=== PATIENT | female | born 1990 | race Caucasian/White ===

== ENCOUNTER 2016-06-13 10:21 | Inpatient (IN) | payer OTHER ==
[2016-06-13 10:36] VITALS: BMI 31.8
[2016-06-13] MEDS ORDERED: KETOROLAC TROMETHAMINE 30 MG/1 ML VIAL IVPUSH ONE (10:45)
[2016-06-13] MEDS ORDERED: KETOROLAC TROMETHAMINE 30 MG/1 ML VIAL ONE (10:53)
[2016-06-13] MEDS ORDERED: ONDANSETRON 4 MG/2 ML VIAL IVPB ONE (10:54)
[2016-06-13] MEDS ORDERED: SODIUM CHLORIDE 1,000 ML IV ONE (10:54)
--- NOTE | 2016-06-13 10:54 | PDOC ---
History of Present Illness - General History Source: Patient Exam Limitations: No Limitations - History of Present Illness Initial Comments: 06/13/16 10:57 The patient is a 26-year-old woman, accompanied by significant other, with a significant past medical history of cholelithiasis who presents to the emergency department via walk-in for further evaluation of abdominal pain since last night. Patient admits she was diagnosed with cholelithiasis back in 2012, but had put off the surgery until now. Patient states that her pain has been intermittent since April 2016 (reported approximately 2-3 flares/week), however, her pain had worsened last night at approximately 20:30 pm. Her pain is located over the right upper quadrant, piercing in nature with an 8/10 in severity that initially was non-radiating and intermittent, but is now constant and has radiated to her mid back. She reports associated symptoms of nausea, acid reflux and urinary frequency. No vomiting. Patient reports eating rich and chicken for dinner last night. Her last menstrual period was on 05/18/2016. Patient admits she had a brief consultation with General Surgeon, Dr. Jc Buckley, approximately 3 days ago. Was told to go to the ED if she had any recurrence of pain. She denies fever, chills, diaphoresis, generalized weakness. She denies chest pain, shortness of breath, cough She denies diarrhea, dysuria, hematuria, urinary urgency, flank pain, vaginal discharge/vaginal bleeding Allergies: None Known Drug Allergies Past Surgical History: None reported. Social History: She denied tobacco, ETOH and recreational drug use. <Martha Butler - Last Filed: 06/13/16 14:18> <Luan Wilson - Last Filed: 06/14/16 09:29> - General Chief Complaint: Pain Stated Complaint: GALLBLADDER PAIN Time Seen by Provider: 06/13/16 10:26 Past History <Martha Butler - Last Filed: 06/13/16 14:18> - Past Medical History GI Disorders: Yes (cholilethisis) - Psycho/Social/Smoking Cessation Hx Anxiety: No Suicidal Ideation: No Smoking History: Never smoked Have you smoked in the past 12 months: No Information on smoking cessation initiated: No Hx Alcohol Use: No Drug/Substance Use Hx: No Substance Use Type: None <Luan Wilson - Last Filed: 06/14/16 09:29> - Past Medical History Allergies/Adverse Reactions: Allergies Allergy/AdvReac Type Severity Reaction Status Date / Time No Known Allergies Allergy Verified 06/13/16 10:32 Home Medications: Ambulatory Orders NK [No Known Home Medication] 06/13/16 Review of Systems - Review of Systems Able to Perform ROS?: Yes Comments:: 06/13/16 10:57 CONSTITUTIONAL: No reported: Fever, Chills, Diaphoresis, Generalized Weakness, Malaise, Loss of Appetite HEENT: No reported: Rhinorrhea, Nasal Congestion, Throat Pain, Throat Swelling, Difficulty Swallowing, Mouth Swelling, Ear Pain, Eye Pain, Visual Changes CARDIOVASCULAR: No reported: Chest Pain, Syncope, Palpitations, Irregular Heart Rate, Lightheadedness, Peripheral Edema RESPIRATORY: No reported: Cough, Shortness of Breath, SOB with Exertion, Orthopnea, Wheezing , Stridor, Hemoptysis GASTROINTESTINAL: Reported: +Abdominal Pain. +Nausea. +Acid Reflux. No reported: Abdominal Distension, Vomiting, Diarrhea, Constipation, Melena, Hematochezia GENITOURINARY: Reported: +Urinary Frequency. No reported: Dysuria, Urgency, Hesitancy, Flank Pain, Genital Pain MUSCULOSKELETAL: Reported: +Mid Back Pain. No reported: Joint Swelling, Neck Pain SKIN: No reported: Rash, Itching, Pallor HEMEATOLOGIC/IMMUNOLOGIC: No reported: Easy Bleeding, Easy Bruising, Lymphadenopathy, Frequent infections ENDOCRINE: No reported: Unexplained Weight Gain, Unexplained Weight Loss, Heat Intolerance , Cold Intolerance NEUROLOGIC: No reported: Headache, Focal Weakness, Paresthesias, Vertigo, Lightheadedness, Unsteady Gait, Seizure, Mental Status Changes, Incontinence PSYCHIATRIC: No reported: Anxiety, Depression <Martha Butler - Last Filed: 06/13/16 14:18> *Physical Exam - Vital Signs Last Vital Signs Temp Pulse Resp BP Pulse Ox 97.6 F 89 18 124/69 100 06/13/16 10:24 06/13/16 10:24 06/13/16 10:24 06/13/16 10:24 06/13/16 10:24 - Physical Exam Comments: 06/13/16 10:57 GENERAL: The patient is awake, alert, and fully oriented, Nontoxic - in no acute distress. HEAD: Normocephalic, atraumatic. EYES: extraocular movements intact, sclera anicteric, conjunctiva clear. ENT: Normal voice, Moist mucous membranes. NECK: Normal range of motion, supple LUNGS: Breath sounds equal, clear to auscultation bilaterally. No wheezes, no rhonchi, no rales. HEART: Regular rate and rhythm, without murmur, rub or gallop. ABDOMEN: Soft, there is mild right upper quadrant tenderness to palpation, normoactive bowel sounds. No guarding, no rebound. No CVA tenderness EXTREMITIES: Normal range of motion, no edema. No clubbing or cyanosis. No cords , erythema, or tenderness. NEUROLOGICAL: No facial assymetry, Normal speech, PSYCH: Normal mood, normal affect. SKIN: Warm, Dry, normal turgor, <Martha Butler - Last Filed: 06/13/16 14:18> - Vital Signs Last Vital Signs Temp Pulse Resp BP Pulse Ox 97.6 F 89 18 124/69 100 06/13/16 10:24 06/13/16 10:24 06/13/16 10:24 06/13/16 10:24 06/13/16 10:24 <Luan Wilson - Last Filed: 06/14/16 09:29> ED Treatment Course - LABORATORY CBC & Chemistry Diagram: 06/13/16 10:47 06/13/16 10:47 - RADIOLOGY Radiograph Interpretation: 06/13/16 13:39 EXAM: US/ABDOMEN US -LIMITED IMPRESSION: Normal liver volume 15.1 cm with findings consistent with hepatic steatosis Normal visualization of the pancreas with no dilation pancreatic duct and no signs of pancreatitis No ascites or pleural effusions Normal visualization abdominal aorta and inferior vena cava with abdominal aorta 1.8 cm. Right kidney 11 x 4 x 6 cm with no hydronephrosis or stones Upper normal gallbladder wall thickness 0.3 cm. Dilation of the common bile duct measuring 1.4 cm with evidence of intrahepatic and extrahepatic biliary duct dilation. No dilation of the pancreatic duct is seen. Proximal abdominal aorta 1.8 cm. Shadowing gallstones noted in the lumen of the gallbladder. Dilation of the common bile duct at the level of the kristal hepatis up to 1.4 cm. Liver volume appears normal. No pericholecystic fluid identified. Recommend consideration to nuclear medicine DISIDA scan to evaluate for cystic duct patency and to evaluate flow in the common bile duct. No thrombus in the portal vein with normal direction of flow in the portal vein identified. Prominent appearance of the intrahepatic bile ducts suspicious for intrahepatic bile duct distention. The possibility of choledocholithiasis is not excluded, consideration to MRCP examination for further evaluation. <Martha Butler - Last Filed: 06/13/16 14:18> - LABORATORY CBC & Chemistry Diagram: 06/14/16 06:00 06/14/16 06:00 - RADIOLOGY Radiology Studies Ordered: Category Date Time Status GALLBLADDER US [US] Stat Ultrasound 06/13/16 10:51 Ordered <Luan Wilson - Last Filed: 06/14/16 09:29> Medical Decision Making - Medical Decision Making 06/13/16 13:40 A call was placed to General Surgeon, Dr. Jc Buckley. Immediate response. Case was discussed. 06/13/16 13:43 Case was discussed with [employer], Dr. Subhash Lee. Case was discussed. Accepts case. 06/13/16 13:45 Case discussed with Finance Teacher, Dr. Remy Marcus. Accepts case. Patient will undergo MRCP. <Martha Butler - Last Filed: 06/13/16 14:18> - Medical Decision Making 06/13/16 13:41 26y F no pmhx presents wiht RUQ pain for several days no fevers, +vomiting, mild RUQ tenderness labs reviewed, noted for elvated LFTs no leukocytosis/fevers or other signs of cholangitis US c/w choledocholithirais - will need to admit pt for MRCP will consult dr. Sanchez. pt given mckeon meds, fluids, zofran case d/w dr. buckley (surgery), dr. lee - agreed with admission for further mangaement awaiting call back from dr. sanchez Case discussed in detail with admitting physician including history, physical exam and ancillary studies. Admitting physician has assumed care for the patient, will follow all pending diagnostics and will complete the evaluation and treatment. 06/13/16 14:[address] sanchez requests mri/mrcp pt notes pain returned - will give morphine for pain control A portion of this note was documented by scribe services under my direction. I have reviewed the details of the note, within reason, and agree with the documentation with the following case summary and management plan written by me <Luan Wilson - Last Filed: 06/14/16 09:29> *DC/Admit/Observation/Transfer - Attestations Scribe Attestion: 06/13/16 10:57 Documentation prepared by Martha Butler, acting as front office medical assistant for Luan Wilson MD. <Martha Butler - Last Filed: 06/13/16 14:18> - Discharge Dispostion Admit: Yes <Luan Wilson - Last Filed: 06/14/16 09:29> Diagnosis at time of Disposition: Choledocholithiasis with obstruction Qualifiers: Cholecystitis presence: without cholecystitis Qualified Code(s): K80.51 - Calculus of bile duct without cholangitis or cholecystitis with obstruction - Referrals
[2016-06-13 11:00] LABS: BASOPHIL 0.8 % (0-2.0); EOSINOPHIL 1.4 % (0-4.5); MCH 30.2 pg (25.7-33.7); MCHC 33.4 g/dl (32.0-36.0); MEAN CELL VOLUME 90.6 fl (80-96); MEAN PLT VOLUME 8.2 fl (7.5-11.1); NEUTROPHILS 73.5 % (42.8-82.8); PLATELET COUNT 315 K/MM3 (134-434); RDW 13.2 % (11.6-15.6); WHITE BLOOD COUNT 6.1 K/mm3 (4.0-10.0)
[2016-06-13 11:14] LABS: URINE APPEARANCE SLCLOUDY; URINE BILIRUBIN NEGATIVE (NEGATIVE); URINE BLOOD NEGATIVE (NEGATIVE); URINE COLOR YELLOW; URINE GLUCOSE (UA) NEGATIVE (NEGATIVE); URINE KETONE NEGATIVE (NEGATIVE); URINE LEUK ESTERASE NEGATIVE (NEGATIVE); URINE NITRITE NEGATIVE (NEGATIVE); URINE PROTEIN NEGATIVE (NEGATIVE); URINE UROBILINOGEN NEGATIVE E.U./dl (0.2-1.0)
[2016-06-13 11:33] LABS: ALBUMIN 3.9 g/dl (3.4-5.0); ALK PHOS 203 U/L (45-117); ANION GAP 7 (8-16); BILIRUBIN,DIRECT 0.6 mg/dL (0.0-0.2); BILIRUBIN,TOTAL 0.9 mg/dL (0.2-1.0); CALCIUM 8.9 mg/dL (8.5-10.1); CO2 26 mmol/L (21-32); CREATININE 0.6 mg/dL (0.55-1.02); GLUCOSE,RANDOM 86 mg/dL (74-106); TOT PROT 8.4 g/dl (6.4-8.2)
[2016-06-13 11:36] LABS: SGPT/ALT 567 U/L (12-78)
[2016-06-13 11:37] LABS: SGOT/AST 708 U/L (15-37)
[2016-06-13] MEDS ORDERED: ONDANSETRON 4 MG/2 ML VIAL ONE (11:59)
[2016-06-13] MEDS ORDERED: morphine CARPU-JECT 4 MG/1 ML DISP.SYRIN IVPUSH ONE (13:45)
[2016-06-13] MEDS ORDERED: morphine CARPU-JECT 4 MG/1 ML DISP.SYRIN ONE (14:09)
[2016-06-13] MEDS ORDERED: DEXTROSE 5%-0.45% SALINE 1,000 ML IV SCH (17:45)
[2016-06-13] MEDS ORDERED: INFLUENZA VACCINE 45 MCG/0.5 ML (MDV 16-17) IM ONE (19:00)
--- NOTE | 2016-06-13 20:29 | HP ---
Admitting History and Physical - Primary Care Physician PCP: Juan Troncoso - Admission Chief Complaint: abdominal pain History of Present Illness: 26-year-old woman,with a significant past medical history of cholelithiasis who presents to the emergency department for abdominal pain since last night. Patient admits she was diagnosed with cholelithiasis back in 2012, but had put off the surgery until now. Patient states that her pain has been intermittent since April 2016 (reported approximately 2-3 flares/week), however, her pain had worsened last night afte dinner. Her pain is located over the right upper quadrant, has radiated to her mid back 8/10 in severity. She reports associated symptoms of nausea, acid reflux and urinary frequency. No vomiting. Patient reports eating rich and chicken for dinner last night. Her last menstrual period was on 05/18/2016. - Past Medical History Hepatobiliary: Yes: Cholelithiasis ...LMP: 05/18/16 ...: No - Smoking History Smoking history: Never smoked Have you smoked in the past 12 months: No - Alcohol/Substance Use Hx Alcohol Use: No Home Medications - Allergies Allergies/Adverse Reactions: Allergies Allergy/AdvReac Type Severity Reaction Status Date / Time No Known Allergies Allergy Verified 06/13/16 10:32 - Home Medications Home Medications: Ambulatory Orders NK [No Known Home Medication] 06/13/16 Review of Systems - Review of Systems Gastrointestinal: reports: Abdominal Pain Physical Examination Vital Signs: Vital Signs Temperature 98.3 F 06/13/16 17:44 Pulse Rate 70 06/13/16 17:44 Respiratory Rate 18 06/13/16 17:44 Blood Pressure 104/68 06/13/16 17:44 O2 Sat by Pulse Oximetry (%) 100 06/13/16 15:54 Constitutional: Yes: Anxious HENT: Yes: Atraumatic Neck: Yes: Supple Cardiovascular: Yes: Regular Rate and Rhythm Respiratory: Yes: CTA Bilaterally Gastrointestinal: Yes: Normal Bowel Sounds, Tenderness (mild ruq/epigastric) Extremities: Yes: WNL Neurological: Yes: Alert, Oriented Imaging - Results MRI: Report Reviewed Problem List - Problems (1) Choledocholithiasis with obstruction Assessment/Plan: npo, ivf, iv prn pain meds gi and surgery consult Code(s): K80.51 - CALCULUS OF BILE DUCT W/O CHOLANGITIS OR CHOLECYST W OBST Qualifiers: Cholecystitis presence: without cholecystitis Qualified Code(s): K80.51 - Calculus of bile duct without cholangitis or cholecystitis with obstruction Assessment/Plan Laboratory Tests 06/13/16 06/13/16 06/13/16 10:47 10:47 10:47 WBC 6.1 RBC 4.70 Hgb 14.2 Hct 42.5 MCV 90.6 MCHC 33.4 RDW 13.2 Plt Count 315 MPV 8.2 Neutrophils % 73.5 Lymphocytes % 17.4 Monocytes % 6.9 Eosinophils % 1.4 Basophils % 0.8 Sodium 138 Potassium 4.3 Chloride 105 Carbon Dioxide 26 Anion Gap 7 L BUN 6 L Creatinine 0.6 Creat Clearance w eGFR > 60 Random Glucose 86 Calcium 8.9 Total Bilirubin 0.9 Direct Bilirubin 0.6 H AST 708 H ALT 567 H Alkaline Phosphatase 203 H Total Protein 8.4 H Albumin 3.9 Lipase 170 Urine Color Yellow Urine Appearance Slcloudy Urine pH 8.0 Ur Specific Macy 1.012 Urine Protein Negative Urine Glucose (UA) Negative Urine Ketones Negative Urine Blood Negative Urine Nitrite Negative Urine Bilirubin Negative Urine Urobilinogen Negative Ur Leukocyte Esterase Negative Urine HCG, Qual Negative 1.choledocholithis/cholelithiasis npo, ivf, iv abx prn painmeds gi and surgery consult
[2016-06-13] MEDS: HYDROmorphone HCL CARPU-JECT 1 MG/1 ML DISP.SYRIN IVPB PRN (21:05)
[2016-06-13] MEDS: SODIUM CHLORIDE 1,000 ML IV SCH (21:09)
[2016-06-13] MEDS: ONDANSETRON 4 MG/2 ML VIAL IVPB PRN (22:44)
[2016-06-13] MEDS: AMPICILLIN NA/SULBACTAM NA 1.5 GM/100 ML PRE-DOCKED IVPB SCH (22:45)
[2016-06-14] MEDS: AMPICILLIN NA/SULBACTAM NA 1.5 GM/100 ML PRE-DOCKED IVPB SCH (06:31)
[2016-06-14] MEDS: SODIUM CHLORIDE 1,000 ML IV SCH ×2 (06:37→22:23)
[2016-06-14] MEDS: HYDROmorphone HCL CARPU-JECT 1 MG/1 ML DISP.SYRIN IVPB PRN ×3 (07:06→23:05)
[2016-06-14 08:07] LABS: EOSINOPHIL 3.1 % (0-4.5); MEAN CELL VOLUME 91.1 fl (80-96); NEUTROPHILS 57.5 % (42.8-82.8); PLATELET COUNT 253 K/MM3 (134-434); WHITE BLOOD COUNT 4.9 K/mm3 (4.0-10.0)
[2016-06-14 08:23] LABS: ALBUMIN 3.2 g/dl (3.4-5.0); ALK PHOS 155 U/L (45-117); ANION GAP 5 (8-16); BILIRUBIN,TOTAL 0.7 mg/dL (0.2-1.0); CALCIUM 8.2 mg/dL (8.5-10.1); CO2 28 mmol/L (21-32); CREATININE 0.6 mg/dL (0.55-1.02); GLUCOSE,RANDOM 81 mg/dL (74-106); SGOT/AST 230 U/L (15-37); SGPT/ALT 382 U/L (12-78); TOT PROT 6.6 g/dl (6.4-8.2)
[2016-06-14] MEDS: ONDANSETRON 4 MG/2 ML VIAL IVPB PRN (08:56)
--- NOTE | 2016-06-14 10:59 | CONSULT ---
Consult Consult Specialty:: Surgery Reason for Consultation:: cholelithiasis, r/o choledocholithiasis - History of Present Illness Chief Complaint: Abdominal pain History of Present Illness: The patient is a 26-year-old woman, accompanied by significant other, with a significant past medical history of cholelithiasis who presents to the emergency department via walk-in for further evaluation of abdominal pain since last night. Patient admits she was diagnosed with cholelithiasis back in 2012, but had put off the surgery until now. Patient states that her pain has been intermittent since April 2016 (reported approximately 2-3 flares/week), however, her pain had worsened last night at approximately 20:30 pm. Her pain is located over the right upper quadrant, piercing in nature with an 8/10 in severity that initially was non-radiating and intermittent, but is now constant and has radiated to her mid back. She reports associated symptoms of nausea, acid reflux and urinary frequency. No vomiting. Patient reports eating rich and chicken for dinner last night. Her last menstrual period was on 05/18/2016. She denies fever, chills, diaphoresis, generalized weakness. She denies chest pain, shortness of breath, cough She denies diarrhea, dysuria, hematuria, urinary urgency, flank pain, vaginal discharge/vaginal bleeding - History Source History Provided By: Patient Limitations to Obtaining History: No Limitations - Past Medical History Hepatobiliary: Yes: Cholelithiasis ...LMP: 05/18/16 ...: No - Alcohol/Substance Use Hx Alcohol Use: No - Smoking History Smoking history: Never smoked Have you smoked in the past 12 months: No Home Medications - Allergies Allergies/Adverse Reactions: Allergies Allergy/AdvReac Type Severity Reaction Status Date / Time No Known Allergies Allergy Verified 06/13/16 10:32 - Home Medications Home Medications: Ambulatory Orders NK [No Known Home Medication] 06/13/16 Review of Systems - Review of Systems HENT: reports: No Symptoms Respiratory: reports: No Symptoms Gastrointestinal: reports: Abdominal Pain Physical Exam Vital Signs: Vital Signs Temperature 98.4 F 06/14/16 06:41 Pulse Rate 80 06/14/16 06:41 Respiratory Rate 20 06/14/16 06:41 Blood Pressure 110/68 06/14/16 06:41 O2 Sat by Pulse Oximetry (%) 100 06/13/16 21:00 Constitutional: Yes: No Distress Eyes: Yes: Conjunctiva Clear HENT: Yes: Normocephalic Neck: Yes: Supple Cardiovascular: Yes: Regular Rate and Rhythm Respiratory: Yes: CTA Bilaterally Gastrointestinal: Yes: Soft, Tenderness (mild over epigastric and RUQ regions) ...Rectal Exam: Yes: Deferred Extremities: Yes: WNL Labs: CBC, BMP 06/14/16 06:00 06/14/16 06:00 Imaging - Results Ultrasound: Report Reviewed, Image Reviewed MRI: Report Reviewed, Image Reviewed Problem List - Problems (1) Common bile duct dilatation Code(s): K83.8 - OTHER SPECIFIED DISEASES OF BILIARY TRACT (2) Cholelithiasis Assessment/Plan: Await GI evaluation Cholecystectomy prior to discharge Code(s): K80.20 - CALCULUS OF GALLBLADDER W/O CHOLECYSTITIS W/O OBSTRUCTION
[2016-06-14] MEDS: PANTOPRAZOLE SODIUM 100 ML IVPB SCH (11:32)
[2016-06-14] MEDS ORDERED: diazePAM 5 MG TABLET PO ONE (18:14)
--- NOTE | 2016-06-14 18:25 | CONSULT ---
Consult Consult Specialty:: GI Reason for Consultation:: choledecholithiasis - History of Present Illness History of Present Illness: The patient is a 26-year-old woman, accompanied by significant other, with a significant past medical history of cholelithiasis who presents to the emergency department via walk-in for further evaluation of abdominal pain since last night. Patient admits she was diagnosed with cholelithiasis back in 2012, but had put off the surgery until now. Patient states that her pain has been intermittent since April 2016 (reported approximately 2-3 flares/week), however, her pain had worsened last night at approximately 20:30 pm. Her pain is located over the right upper quadrant, piercing in nature with an 8/10 in severity that initially was non-radiating and intermittent, but is now constant and has radiated to her mid back. She reports associated symptoms of nausea, acid reflux and urinary frequency. No vomiting. Patient reports eating rich and chicken for dinner last night. Her last menstrual period was on 05/18/2016. Today abdominal pain was less and very hungry. Discussed MRCP result with Dr Huynh, this was inconclusive because of motion artifact. LFTS with marked improvement. - Past Medical History ...LMP: 05/18/16 ...: No - Alcohol/Substance Use Hx Alcohol Use: No - Smoking History Smoking history: Never smoked Have you smoked in the past 12 months: No Home Medications - Allergies Allergies/Adverse Reactions: Allergies Allergy/AdvReac Type Severity Reaction Status Date / Time No Known Allergies Allergy Verified 06/13/16 10:32 - Home Medications Home Medications: Ambulatory Orders NK [No Known Home Medication] 06/13/16 Physical Exam-GI Vital Signs: Vital Signs Temperature 98.8 F 06/14/16 17:29 Pulse Rate 83 06/14/16 17:29 Respiratory Rate 20 06/14/16 17:29 Blood Pressure 127/56 06/14/16 17:29 O2 Sat by Pulse Oximetry (%) 100 06/14/16 09:00 Constitutional: Yes: Well Nourished Eyes: Yes: Conjunctiva Clear HENT: Yes: Atraumatic Neck: Yes: Trachea Midline Cardiovascular: Yes: Regular Rate and Rhythm Respiratory: Yes: CTA Bilaterally ...Palpate: Yes: Soft. No: Firm/Rigid, Guarding, Hepatomegaly, Mass, Pulsatile Mass, Splenomegaly, Tenderness Labs: CBC, BMP 06/14/16 06:00 06/14/16 06:00 Imaging - Results Ultrasound: Report Reviewed MRI: Report Reviewed, Image Reviewed Problem List - Problems (1) Common bile duct dilatation Assessment/Plan: r/o CBD stone vs passage of stone R> repeat MRCP for p[ossible ERCP tomorrow discussed complications of ERCP including pancreatitis, bleeding and perforation Code(s): K83.8 - OTHER SPECIFIED DISEASES OF BILIARY TRACT
--- NOTE | 2016-06-14 20:00 | PN ---
Progress Note, Physician - Current Medication List Current Medications: Active Medications Hydromorphone HCl (Dilaudid Injection -) 1 mg IVPB Q3H PRN PRN Reason: PAIN Last Admin: 06/14/16 11:47 Dose: 1 mg Sodium Chloride (Normal Saline -) 1,000 mls @ 75 mls/hr IV ASDIR AMERICO Last Admin: 06/14/16 06:37 Dose: 75 mls/hr Pantoprazole Sodium (Protonix 40mg Ivpb (Pre-Docked)) 100 mls @ 100 mls/hr IVPB DAILY AMERICO Last Admin: 06/14/16 11:32 Dose: 100 mls/hr Ampicillin Sodium/Sulbactam (Sodium 1.5 gm/ Sodium Chloride) 100 mls @ 200 mls/ hr IVPB Q8H-IV AMERICO Dextrose/Sodium Chloride (D5-Ns -) 1,000 mls @ 125 mls/hr IV ASDIR AMERICO Stop: 06/17/16 02:29 Ondansetron HCl (Zofran Injection) 4 mg IVPB Q4H PRN PRN Reason: NAUSEA AND/OR VOMITING Last Admin: 06/14/16 08:56 Dose: 4 mg - Objective Vital Signs: Vital Signs Temperature 98.8 F 06/14/16 17:29 Pulse Rate 83 06/14/16 17:29 Respiratory Rate 20 06/14/16 17:29 Blood Pressure 127/56 06/14/16 17:29 O2 Sat by Pulse Oximetry (%) 100 06/14/16 09:00 Constitutional: Yes: No Distress HENT: Yes: Atraumatic Cardiovascular: Yes: Regular Rate and Rhythm Respiratory: Yes: CTA Bilaterally Gastrointestinal: Yes: Normal Bowel Sounds Extremities: Yes: WNL Neurological: Yes: Alert, Oriented Labs: CBC, BMP 06/14/16 06:00 06/14/16 06:00 Problem List - Problems (1) Choledocholithiasis with obstruction Code(s): K80.51 - CALCULUS OF BILE DUCT W/O CHOLANGITIS OR CHOLECYST W OBST Qualifiers: Cholecystitis presence: without cholecystitis Qualified Code(s): K80.51 - Calculus of bile duct without cholangitis or cholecystitis with obstruction Assessment/Plan 1.choledocholithis/cholelithiasis on clear liquid diet, ivf, iv abx prn painmeds repeat mri done ...report pending gi and surgery consult noted
[2016-06-14] MEDS: DEXTROSE 5%-NORMAL SALINE 1,000 ML IV SCH (22:23)
[2016-06-14] MEDS ORDERED: ZOLPIDEM TARTRATE 5 MG TABLET PO ONE (22:30)
[2016-06-15] MEDS: DEXTROSE 5%-NORMAL SALINE 1,000 ML IV SCH ×2 (06:09→19:45)
[2016-06-15] MEDS: PANTOPRAZOLE SODIUM 100 ML IVPB SCH (10:37)
[2016-06-15] MEDS ORDERED: GLYCOPYRROLATE 0.2 MG/1 ML VIAL ONE ×3 (12:34)
[2016-06-15] MEDS ORDERED: PROPOFOL 20 ML ONE (12:34)
[2016-06-15] MEDS ORDERED: MIDAZOLAM HCL 2 MG/2 ML SINGLE DOSE VIAL ONE (12:34)
[2016-06-15] MEDS ORDERED: ROCURONIUM BROMIDE 50 MG/5 ML VIAL ONE (12:34)
[2016-06-15] MEDS ORDERED: NEOSTIGMINE METHYLSULFATE 0.5 MG/ML - 10 ML MDV ONE (12:35)
[2016-06-15] MEDS ORDERED: ONDANSETRON 4 MG/2 ML VIAL ONE (12:51)
[2016-06-15] MEDS ORDERED: ceFAZolin SODIUM 1 GM VIAL ONE (13:34)
[2016-06-15] MEDS ORDERED: ceFAZolin SODIUM 1 GM VIAL IVPB ONE (13:35)
[2016-06-15] MEDS ORDERED: INDOMETHACIN 50 MG RECTAL SUPPOSITORY PR ONE (13:47)
[2016-06-15] MEDS: HYDROmorphone HCL CARPU-JECT 1 MG/1 ML DISP.SYRIN IVPB PRN (16:11)
--- NOTE | 2016-06-15 16:52 | PN ---
Progress Note (short form) - Note Progress Note: Surgery Underwent ERCP with stone extraction and sphincterotomy toda. C/O mild abdominal pain Abd: soft A: cholelithiasis and choledocholithiasis P: robotic cholecystectomy in am. Risks, benefits, and alternatives d/w patient. Problem List - Problems (1) Common bile duct dilatation Code(s): K83.8 - OTHER SPECIFIED DISEASES OF BILIARY TRACT (2) Cholelithiasis Code(s): K80.20 - CALCULUS OF GALLBLADDER W/O CHOLECYSTITIS W/O OBSTRUCTION
[2016-06-15] MEDS: ONDANSETRON 4 MG/2 ML VIAL IVPB PRN (17:49)
[2016-06-15] MEDS ORDERED: MAG HYDROX/AL HYDROX/SIMETH 30 ML UNIT-DOSE CUP PO PRN (18:50)
--- NOTE | 2016-06-15 18:57 | PN ---
Progress Note, Physician History of Present Illness: gas pain - Current Medication List Current Medications: Active Medications Al Hydroxide/Mg Hydroxide (Mylanta Oral Suspension -) 30 ml PO Q6H PRN PRN Reason: DYSPEPSIA Hydromorphone HCl (Dilaudid Injection -) 1 mg IVPB Q3H PRN PRN Reason: PAIN Last Admin: 06/15/16 16:11 Dose: 1 mg Sodium Chloride (Normal Saline -) 1,000 mls @ 75 mls/hr IV ASDIR AMERICO Last Admin: 06/14/16 22:23 Dose: Not Given Pantoprazole Sodium (Protonix 40mg Ivpb (Pre-Docked)) 100 mls @ 100 mls/hr IVPB DAILY AMERICO Last Admin: 06/15/16 10:37 Dose: 100 mls/hr Ampicillin Sodium/Sulbactam (Sodium 1.5 gm/ Sodium Chloride) 100 mls @ 200 mls/ hr IVPB Q8H-IV AMERICO Dextrose/Sodium Chloride (D5-Ns -) 1,000 mls @ 125 mls/hr IV ASDIR AMERICO Stop: 06/17/16 02:29 Last Admin: 06/15/16 06:09 Dose: 125 mls/hr Ondansetron HCl (Zofran Injection) 4 mg IVPB Q4H PRN PRN Reason: NAUSEA AND/OR VOMITING Last Admin: 06/15/16 17:49 Dose: 4 mg - Objective Vital Signs: Vital Signs Temperature 98.1 F 06/15/16 18:24 Pulse Rate 95 H 06/15/16 18:24 Respiratory Rate 18 06/15/16 18:24 Blood Pressure 133/84 06/15/16 18:24 O2 Sat by Pulse Oximetry (%) 98 06/15/16 15:05 Constitutional: Yes: No Distress HENT: Yes: Atraumatic Neck: Yes: Supple Cardiovascular: Yes: Regular Rate and Rhythm Respiratory: Yes: CTA Bilaterally Gastrointestinal: Yes: Normal Bowel Sounds, Tenderness (mild ruq) Extremities: Yes: WNL Labs: CBC, BMP 06/14/16 06:00 06/14/16 06:00 Problem List - Problems (1) Choledocholithiasis with obstruction Code(s): K80.51 - CALCULUS OF BILE DUCT W/O CHOLANGITIS OR CHOLECYST W OBST Qualifiers: Cholecystitis presence: without cholecystitis Qualified Code(s): K80.51 - Calculus of bile duct without cholangitis or cholecystitis with obstruction (2) Cholelithiasis Assessment/Plan: for gb surgery in am Code(s): K80.20 - CALCULUS OF GALLBLADDER W/O CHOLECYSTITIS W/O OBSTRUCTION (3) Common bile duct dilatation Assessment/Plan: s/p sphicterotomy and stone removal for surgery in am prn pain meds Code(s): K83.8 - OTHER SPECIFIED DISEASES OF BILIARY TRACT Assessment/Plan 1.choledocholithis/cholelithiasis on clear liquid diet, ivf, iv abx prn painmeds repeat mri done ...report pending gi and surgery consult noted
[2016-06-15] MEDS: SODIUM CHLORIDE 1,000 ML IV SCH (20:45)
[2016-06-16] MEDS: SODIUM CHLORIDE 1,000 ML IV SCH (05:30)
[2016-06-16] MEDS ORDERED: ONDANSETRON 4 MG/2 ML VIAL IVPB PRN ×2 (07:09→17:09)
[2016-06-16] MEDS ORDERED: DEXTROSE 5%-NORMAL SALINE 1,000 ML IV SCH ×2 (07:09→17:09)
[2016-06-16] MEDS ORDERED: HYDROmorphone HCL CARPU-JECT 1 MG/1 ML DISP.SYRIN IVPB PRN (07:09)
[2016-06-16] MEDS ORDERED: SODIUM CHLORIDE 1,000 ML IV SCH ×2 (07:09→17:09)
[2016-06-16 07:16] LABS: BASOPHIL 0.8 % (0-2.0); EOSINOPHIL 2.2 % (0-4.5); MCH 30.6 pg (25.7-33.7); MEAN CELL VOLUME 90.2 fl (80-96); MEAN PLT VOLUME 7.9 fl (7.5-11.1); NEUTROPHILS 65.6 % (42.8-82.8); PLATELET COUNT 248 K/MM3 (134-434)
[2016-06-16 07:42] LABS: INR 1.26 (0.82-1.09); PROTHROMBIN TIME (PATIENT) 13.9 SEC (9.98-11.88)
[2016-06-16] MEDS: AMPICILLIN NA/SULBACTAM NA 1.5 GM in SODIUM CHLORIDE 100 ML IVPB SCH ×3 (07:43→07:45)
[2016-06-16 08:48] LABS: ALBUMIN 3.2 g/dl (3.4-5.0); BILIRUBIN,DIRECT 0.2 mg/dL (0.0-0.2); BILIRUBIN,TOTAL 0.5 mg/dL (0.2-1.0); CALCIUM 8.4 mg/dL (8.5-10.1); CREATININE 0.6 mg/dL (0.55-1.02); TOT PROT 6.6 g/dl (6.4-8.2)
[2016-06-16] MEDS ORDERED: ACETAMINOPHEN 325 MG TABLET (FP) PO PRN ×2 (08:53→17:09)
[2016-06-16] MEDS ORDERED: PANTOPRAZOLE SODIUM 100 ML IVPB SCH (10:00)
[2016-06-16] MEDS ORDERED: AMPICILLIN NA/SULBACTAM NA 1.5 GM in SODIUM CHLORIDE 100 ML IVPB SCH ×2 (10:00→18:00)
[2016-06-16] MEDS ORDERED: BUPIVACAINE HCL/PF 0.5% (5MG/ML) 10 ML VIAL ONE (13:09)
[2016-06-16] MEDS ORDERED: SUCCINYLCHOLINE CHLORIDE 200 MG/10 ML VIAL ONE (13:56)
[2016-06-16] MEDS ORDERED: MIDAZOLAM HCL 2 MG/2 ML SINGLE DOSE VIAL ONE (13:56)
[2016-06-16] MEDS ORDERED: PROPOFOL 20 ML ONE (13:56)
[2016-06-16] MEDS ORDERED: ROCURONIUM BROMIDE 50 MG/5 ML VIAL ONE (13:56)
[2016-06-16] MEDS ORDERED: SODIUM CHLORIDE 0.9% P/F 10 ML VIAL IJ ONE (14:31)
[2016-06-16] MEDS ORDERED: ceFAZolin SODIUM 1 GM VIAL ONE (14:32)
[2016-06-16] MEDS ORDERED: ceFAZolin SODIUM 1 GM VIAL IVPB ONE (14:43)
[2016-06-16] MEDS ORDERED: BUPIVACAINE HCL/PF 0.5% (5MG/ML) 10 ML VIAL IJ ONE ×2 (14:46)
[2016-06-16] MEDS ORDERED: HYDROmorphone HCL/PF 1 MG/ML VIAL (FOR PYXIS CHARGING ONLY) ONE (15:11)
[2016-06-16] MEDS ORDERED: DEXAMETHASONE SOD PHOSPHATE 4 MG/1 ML VIAL ONE (16:08)
[2016-06-16] MEDS ORDERED: PROMETHAZINE HCL 25 MG/1 ML VIAL IVPUSH PRN ×2 (16:14→17:09)
[2016-06-16] MEDS ORDERED: ONDANSETRON 4 MG/2 ML VIAL IVPUSH PRN ×2 (16:14→17:09)
[2016-06-16] MEDS ORDERED: LACTATED RINGERS SOLUTION 1,000 ML IV SCH ×2 (16:15→17:09)
--- NOTE | 2016-06-16 16:18 | SURG ---
Surgery Amf Mechanic Note Amf Mechanic: Fabien Casiano PA-C Date of Service: 06/16/16 Diagnosis: Acute cholecystitis, cholelithiasis Procedure: Robotic cholecystectomy I was present for the entirety of the operative procedure. For further detail, please refer to operative report. Visit type - Case Type Case Type: ED Admission - Emergency Emergency Visit: Yes ED Registration Date: 06/13/16 Care time: The patient presented to the Emergency Department on the above date and was hospitalized for further evaluation of their emergent condition. - New patient This patient is new to me today: Yes Date on this admission: 06/16/16
--- NOTE | 2016-06-16 16:18 | OP ---
Operative Note - Note: Operative Date: 06/16/16 Pre-Operative Diagnosis: Cholecystitis, cholelithiasis Operation: Robotic cholecystectomy Post-Operative Diagnosis: Same as Pre-op Surgeon: Jc Buckley Training Associate: Fabien Casiano) Anesthesiologist/VP TREASURER: Myles Levy Anesthesia: General Specimens Removed: gall bladder Estimated Blood Loss (mls): 5 Fluid Volume Replaced (mls): 900 Operative Report Dictated: Yes
[2016-06-16] MEDS ORDERED: ACETAMINOPHEN 1000 MG/100 ML VIAL (NON FORMULARY) IVPB ONE (16:20)
--- NOTE | 2016-06-16 16:23 | OP ---
Operative Note - Note: Operative Date: 06/16/16 Pre-Operative Diagnosis: Cholelithiasis with choledocholithiasis Operation: Robotic cholecystectomy Findings: GB with multiple stones, dilated CBD Post-Operative Diagnosis: Same as Pre-op Surgeon: Jc Buckley Winch Runner: Fabien Casiano Anesthesiologist/END TRIMMER: Oskar Kathleen Anesthesia: General Estimated Blood Loss (mls): 5 Operative Report Dictated: Yes
[2016-06-16] MEDS ORDERED: ACETAMINOPHEN INJECTION 100 ML IVPB ONE (16:49)
[2016-06-16] MEDS ORDERED: MAG HYDROX/AL HYDROX/SIMETH 30 ML UNIT-DOSE CUP PO PRN (17:09)
--- NOTE | 2016-06-16 17:10 | PN ---
Progress Note, Physician History of Present Illness: s/p surgery - Current Medication List Current Medications: Active Medications Acetaminophen (Tylenol -) 650 mg PO Q6H PRN PRN Reason: FEVER OR PAIN Last Admin: 06/16/16 10:05 Dose: 650 mg Al Hydroxide/Mg Hydroxide (Mylanta Oral Suspension -) 30 ml PO Q6H PRN PRN Reason: DYSPEPSIA Last Admin: 06/15/16 19:01 Dose: 30 ml Fentanyl (Sublimaze Injection -) 50 mcg IVPUSH [id number] PRN PRN Reason: PAIN Stop: 06/19/16 16:15 Hydromorphone HCl (Dilaudid Injection -) 1 mg IVPB Q3H PRN PRN Reason: PAIN Ampicillin Sodium/Sulbactam (Sodium 1.5 gm/ Sodium Chloride) 100 mls @ 200 mls/ hr IVPB Q8H-IV AMERICO Dextrose/Sodium Chloride (D5-Ns -) 1,000 mls @ 125 mls/hr IV ASDIR AMERICO Stop: 06/17/16 02:29 Last Admin: 06/16/16 08:10 Dose: 125 mls/hr Pantoprazole Sodium (Protonix 40mg Ivpb (Pre-Docked)) 100 mls @ 200 mls/hr IVPB DAILY AMERICO Last Admin: 06/16/16 10:05 Dose: 200 mls/hr Sodium Chloride (Normal Saline -) 1,000 mls @ 75 mls/hr IV ASDIR AMERICO Last Admin: 06/16/16 08:11 Dose: Not Given Lactated Ringer's (Lactated Ringers Solution) 1,000 mls @ 125 mls/hr IV ASDIR AMERICO Ketorolac Tromethamine (Toradol Injection -) 30 mg IVPUSH Q8H-IV AMERICO Stop: 06/21/16 17:59 Ondansetron HCl (Zofran Injection) 4 mg IVPB Q4H PRN PRN Reason: NAUSEA AND/OR VOMITING Ondansetron HCl (Zofran Injection) 4 mg IVPUSH Q6H PRN PRN Reason: NAUSEA AND/OR VOMITING Stop: 06/16/16 22:15 Promethazine HCl (Phenergan Injection -) 12.5 mg IVPUSH Q6H PRN PRN Reason: NAUSEA Stop: 06/16/16 22:15 - Objective Vital Signs: Vital Signs Temperature 98.4 F 06/16/16 14:30 Pulse Rate 70 06/16/16 14:30 Respiratory Rate 18 06/16/16 14:30 Blood Pressure 127/78 06/16/16 14:30 O2 Sat by Pulse Oximetry (%) 100 06/16/16 09:00 Constitutional: Yes: No Distress HENT: Yes: Atraumatic Neck: Yes: Supple Cardiovascular: Yes: Regular Rate and Rhythm Respiratory: Yes: CTA Bilaterally Gastrointestinal: Yes: Hypoactive Bowel Sounds, Tenderness Extremities: Yes: WNL Neurological: Yes: Alert, Oriented Labs: CBC, BMP 06/16/16 06:00 06/16/16 06:00 INR, PTT INR 1.26 (0.82-1.09) H 06/16/16 06:00 Problem List - Problems (1) Choledocholithiasis with obstruction Code(s): K80.51 - CALCULUS OF BILE DUCT W/O CHOLANGITIS OR CHOLECYST W OBST Qualifiers: Cholecystitis presence: without cholecystitis Qualified Code(s): K80.51 - Calculus of bile duct without cholangitis or cholecystitis with obstruction (2) Cholelithiasis Code(s): K80.20 - CALCULUS OF GALLBLADDER W/O CHOLECYSTITIS W/O OBSTRUCTION (3) Common bile duct dilatation Code(s): K83.8 - OTHER SPECIFIED DISEASES OF BILIARY TRACT Assessment/Plan 1.choledocholithis/cholelithiasis s/p cholecystectomy on clear liquid diet, ivf, iv abx prn painmeds dc in am if stable
--- NOTE | 2016-06-16 17:26 | OP ---
DATE OF OPERATION: 06/16/2016 PROCEDURE: Robotic-assisted laparoscopic cholecystectomy. PREOPERATIVE DIAGNOSIS: Cholelithiasis with choledocholithiasis. POSTOPERATIVE DIAGNOSIS: Cholelithiasis with choledocholithiasis. SURGEON: Jc Buckley MD ANESTHESIA: General endotracheal. SALES LEDGER CLERK: YAHAIRA Infante SECOND BUSINESS CONTINUITY STRATEGY DIRECTOR: YAHAIRA Giemnez ANESTHESIA: General endotracheal. FINDINGS AND PROCEDURE: This is a 26-year-old female who presents with intermittent epigastric and right upper quadrant pain, radiating to the back and shoulder, for which an ultrasound in the emergency department revealed gallbladder gallstones. Patient, while awaiting elective procedure, had recurrence of the pain and so was returned to the emergency department. This time, the ultrasound showed gallbladder with multiple stones and dilated common duct. Patient was admitted for further workup and an MRCP revealed a dilated common bile duct with a filling defect and ERCP revealed a choledocholithiasis, which was extracted and sphincterotomy was done. Patient was then scheduled for cholecystectomy prior to discharge. Consent was obtained, after discussing the risks, benefits and alternatives to the procedure. Patient was brought to the operating room and placed in supine position. General endotracheal anesthesia was administered. The abdomen was prepped and draped in the usual sterile fashion. Using 0.5% Marcaine, local anesthesia was administered to the proposed incision sites. The peritoneal cavity was entered using the Veress needle technique via an 8 mm umbilical incision using scalpel blade number 15. Pneumoperitoneum was established. An 8-mm port was inserted through the umbilical incision, followed by insertion of the 3D 30-degree laparoscope. The peritoneal cavity was carefully inspected and was noted to be free of inadvertent injury. Two 8-mm ports were inserted to the right of the umbilicus 7 mm from each other in a straight line under direct vision. Another 8-mm port was inserted to the left of the umbilicus 1 fingerbreadth above the level and also under direct vision. The target organ was set and the robotic arms were docked. An EndoWrist ProGrasp forceps was inserted to the right lateralmost port and then fenestrated bipolar forceps was inserted in the midclavicular port. An EndoWrist hook dissector connected to monopolar cautery was inserted at the left upper quadrant port. The patient was placed in steep reverse Trendelenburg, left side down position. The undersigned then scrubbed out to commence the console part of the procedure. At this point, flimsy adhesions of the liver to the posterior abdominal wall were taken down sharply using the laparoscopic valdemar. The gallbladder fundus was grasped and retracted superiorly with the ProGrasp. The infundibulum was grasped and retracted inferolaterally to expose the hepatocystic triangle. The visceroperitoneum covering the area was scored using the EndoWrist hook dissector. This was carried medially towards the liver and laterally also towards the liver. The cystic duct was noted to be wide, about close to 1 cm in diameter. This was carefully isolated using the EndoWrist hook dissector. The cystic artery was also identified and carefully isolated. A Hem-o-ca clip was applied to the cystic artery and the distal artery was cauterized using the bipolar forceps. This was then transected using the EndoWrist hook dissector. The cystic duct was further dissected towards its junction to the common bile duct. Four Hem-o-ca clips were then applied, followed by transection, leaving 3 Hem-o-ca clips to the cystic duct stump. The gallbladder was then resected from its bed in antegrade fashion using the EndoWrist hook dissector. After this was completed, a small amount of blood was irrigated and suctioned. The gallbladder was then placed in Endobag and extracted via the left upper quadrant port. The robotic arms were undocked and the pneumoperitoneum was evacuated. The ports were removed. The wounds were closed with subcuticular Biosyn 4-0 sutures reinforced with Dermabond. The patient was successfully extubated and transferred to the post-anesthesia care unit in satisfactory condition. Estimated blood loss was about 5 mL. Wound class clean-contaminated. The patient received 1 g of Ancef prior to the start of the procedure. Brianna [id number]
[2016-06-16] MEDS: AMPICILLIN NA/SULBACTAM NA 100 ML IVPB SCH (18:59)
[2016-06-16] MEDS: KETOROLAC TROMETHAMINE 30 MG/1 ML VIAL IVPUSH SCH (18:59)
[2016-06-16] MEDS: HYDROmorphone HCL CARPU-JECT 1 MG/1 ML DISP.SYRIN IVPB PRN (19:59)
--- NOTE | 2016-06-16 19:59 | PN ---
GI Progress Note Subjective: s/p ERCP and cholecystectomy did well - Objective Vital Signs: Vital Signs Temperature 98.5 F 06/16/16 18:51 Pulse Rate 94 H 06/16/16 18:51 Respiratory Rate 20 06/16/16 18:51 Blood Pressure 130/85 06/16/16 18:51 O2 Sat by Pulse Oximetry (%) 97 06/16/16 18:51 Constitutional: Well Nourished, Poor Hygeine HENT: Yes: Atraumatic, Tonsillar Exudate Cardiovascular: Yes: Regular Rate and Rhythm Respiratory: Yes: CTA Bilaterally ...Palpate: Yes: Soft. No: Firm/Rigid, Guarding, Hepatomegaly, Mass, Pulsatile Mass, Splenomegaly, Tenderness, Tenderness, Epigastium Labs: CBC, BMP 06/16/16 06:00 06/16/16 06:00 INR, PTT INR 1.26 (0.82-1.09) H 06/16/16 06:00 Problem List - Problems (1) Common bile duct dilatation Assessment/Plan: s/p removal of CBD stone R> made aware to ff-up as [facility] Code(s): K83.8 - OTHER SPECIFIED DISEASES OF BILIARY TRACT
[2016-06-17] MEDS: KETOROLAC TROMETHAMINE 30 MG/1 ML VIAL IVPUSH SCH ×2 (01:24→09:07)
[2016-06-17] MEDS: AMPICILLIN NA/SULBACTAM NA 100 ML IVPB SCH ×2 (01:33→09:07)
[2016-06-17] MEDS: HYDROmorphone HCL CARPU-JECT 1 MG/1 ML DISP.SYRIN IVPB PRN (05:10)
[2016-06-17 07:53] VITALS: PULSE 74
[2016-06-17] MEDS ORDERED: ACETAMINOPHEN 325 MG TABLET (FP) PO PRN (07:55)
--- NOTE | 2016-06-17 08:34 | PN ---
Progress Note (short form) - Note Progress Note: POD #1 - s/p robotic assisted laparoscopic cholecystectomy under general anesthesia. Pt. doing well, sitting up comfortably in bed eating breakfast. No complaints. No apparent anesthetic complications noted. Continue current care.
--- NOTE | 2016-06-17 09:12 | PN ---
Progress Note (short form) - Note Progress Note: POD #1 s/p Robotic cholecystectomy Alert. Doing well. Sitting up in bed and just finished eating breakfast. She has gotten oob and ambulating unassisted without difficulty. Voiding spontaneously. Denies n/v/f/c, CP, SOB or palpitations. Last Vital Signs Temp Pulse Resp BP Pulse Ox 98.4 F 74 20 129/74 97 06/17/16 07:52 06/17/16 07:52 06/17/16 07:52 06/17/16 07:52 06/16/16 21:00 PE General: NAD ABD: Obese body habitus. All surgical ports c/d/i. No hematoma. LE: Soft, no calf tenderness b/l Problem List - Problems (1) S/P cholecystectomy Assessment/Plan: POD #1 s/p cholecystectomy (acute cholecystitis/lithiasis) From surgical standpoint, patient can be discharged home today. Patient instructed to follow-up with Dr. Buckley in 10 days at is office. Code(s): Z90.49 - ACQUIRED ABSENCE OF OTHER SPECIFIED PARTS OF DIGESTIVE TRACT
[2016-06-17 09:38] VITALS: BP 128/74; TEMP 98.7
[2016-06-17] MEDS ORDERED: PANTOPRAZOLE SODIUM 100 ML IVPB SCH (10:00)
--- NOTE | 2016-06-20 14:00 | PATH ---
Surgical Pathology Report Patient Name: SUELLEN ROWLAND Med. Rec. #: [id number] /Age/Gender: 1990 (Age: 26) / F Account: [id number] Location: [facility] MED/SURG Taken: 06/16/2016 Received: 06/17/2016 Reported: 06/20/2016 Physicians: Jc Buckley M.D. Specimen(s) Received GALLBLADDER Clinical History Cholelithiasis with obstruction Final Diagnosis GALLBLADDER, CHOLECYSTECTOMY: CHRONIC CHOLECYSTITIS AND CHOLELITHIASIS. Electronically Signed Alli Elliott M.D. Gross Description Received in formalin, labeled "gallbladder" is a 6.5 x 3.0 x 2.8 cm gallbladder with a 0.2 cm in length portion of cystic duct attached. The outer surface is georges-mao and varies from smooth to shaggy. The lumen contains yellow-green, sludge-like bile as well as numerous yellow irregular choleliths ranging from 0.1-0.8 cm in greatest dimension. The mucosa is green and focally eroded. The wall of the gallbladder averages 0.1 cm in thickness. [employer] Designer sections are submitted in one cassette. /06/17/201606/17/2016
--- NOTE | 2016-06-21 20:15 | DS ---
Physical Examination Vital Signs: Vital Signs Temperature 98.7 F 06/17/16 09:37 Pulse Rate 74 06/17/16 09:37 Respiratory Rate 20 06/17/16 09:37 Blood Pressure 128/74 06/17/16 09:37 O2 Sat by Pulse Oximetry (%) 99 06/17/16 09:00 Labs: CBC, BMP 06/16/16 06:00 06/16/16 06:00 Discharge Summary Reason For Visit: CHOLECDOCHOLITHIASIS WITH OBSTRUCTION - Instructions Referrals: Jc Buckley MD [Staff Physician] - Ledy Polo MD [Primary Care Provider] - Disposition: HOME - Home Medications Comprehensive Discharge Medication List: Ambulatory Orders Ibuprofen [Motrin -] 600 mg PO TID #21 tablet 06/16/16 in home
== END 2016-06-17 11:23 | disposition home or self-care (01) | DRG 263 ==
LOC: JER 10:21 → UNDOADMIN 14:25 → JERBED 14:25 → J8W 17:05 → JERBED 17:05 → J8W 20:19
PROVIDERS: ADMIT Internal Medicine; ATTEND Internal Medicine
PROC: 0FC98ZZ Extirpation of Matter from Common Bile Duct, Via Natural or Artificial Opening Endoscopic (ICD-10-PCS; 2016-06-15)
PROC: 8E0W4CZ Robotic Assisted Procedure of Trunk Region, Percutaneous Endoscopic Approach (ICD-10-PCS; 2016-06-16)
PROC: 0DNW4ZZ Release Peritoneum, Percutaneous Endoscopic Approach (ICD-10-PCS; 2016-06-16)
PROC: 0FT44ZZ Resection of Gallbladder, Percutaneous Endoscopic Approach (ICD-10-PCS; principal; 2016-06-16 14:00)
DX: K80.51 Calculus of bile duct without cholangitis or cholecystitis with obstruction (principal); K66.0 Peritoneal adhesions (postprocedural) (postinfection); K83.8 Other specified diseases of biliary tract; E66.9 Obesity, unspecified; Z68.31 Body mass index [BMI] 31.0-31.9, adult
CPT/HCPCS: 36415; 74181-TC; 74330-TC; 76705-TC; 80048; 80053; 80076; 81003; 82248; 83690; 84703; 85025; 85610; 86850; 86900; 86901; 88304-TC; 94760; 99284-25; G0008; Q2037

== ENCOUNTER 2017-02-04 07:56 | Emergency (ER) | payer OTHER ==
[2017-02-04 08:14] VITALS: BP 143/95; PULSE 85; TEMP 98.4; BMI 31.8
--- NOTE | 2017-02-04 08:35 | PDOC ---
History of Present Illness - General Chief Complaint: Rash Stated Complaint: RASH Time Seen by Provider: 02/04/17 08:24 History Source: Patient Exam Limitations: No Limitations - History of Present Illness Initial Comments: 02/04/17 08:57 CHIEF COMPLAINT: rash palms, plantar feet, oral lesions HISTORY OF PRESENT ILLNESS: Pt. is a 26 y/o female with h/o cholecysterectomy here today after noticed a few oral lesions that started since later yesterday. patient reported That she was seen by her primary care provider yesterday and started on amoxicillin patient did not have strep tests but provider thought she had strep tonsillitis.Patient is also requesting STD testing had read online that rash on feet and palms could be due to syphilis. Patient denies any vaginal discharge or vaginal lesions however she does also want to test for GC and chlamydia. Patient is sexually active with the same partner however does have unprotected sex. Patient has had no recent travel. 02/04/17 13:24 Timing/Duration: intermittent Associated Symptoms: reports: rash (palms, plantar b/l ), other (sore throat, dot like rash palms, plantar feet, few oral lesions since yesterday) Past History - Past Medical History Allergies/Adverse Reactions: Allergies Allergy/AdvReac Type Severity Reaction Status Date / Time No Known Allergies Allergy Verified 02/04/17 08:12 Home Medications: Ambulatory Orders Amoxicillin - [Amoxicillin 500mg Capsule -] 500 mg PO BID 02/04/17 Mag Hydrox/Alh/Smc/Dpha/Lido [Magic Mouthwash *Sjr Formula*] 120 ml MM Q3H PRN # 1 mouthwash 02/04/17 Anemia: No Asthma: No Cancer: No Cardiac Disorders: No CVA: No COPD: No CHF: No Dementia: No Diabetes: No GI Disorders: Yes (cholilethisis) Disorders: No HTN: No Hypercholesterolemia: No Liver Disease: No Seizures: No Thyroid Disease: No - Surgical History Cholecystectomy: Yes - Psycho/Social/Smoking Cessation Hx Anxiety: No Suicidal Ideation: No Smoking History: Never smoked Have you smoked in the past 12 months: No Information on smoking cessation initiated: No Hx Alcohol Use: No Drug/Substance Use Hx: No Substance Use Type: None Review of Systems - Review of Systems Able to Perform ROS?: Yes Constitutional: Yes: Fever (few days ago ) HEENTM: Yes: Throat Pain (started amoxicillin yesterday) Respiratory: No: Symptoms reported Cardiac (ROS): No: Symptoms Reported ABD/GI: No: Symptoms Reported : No: Symptoms Reported Musculoskeletal: No: Symptoms Reported Integumentary: Yes: Rash (oval non confluent area of erythema tiny palms, plantar feet b/l ) Neurological: No: Symptoms reported *Physical Exam - Vital Signs Last Vital Signs Temp Pulse Resp BP Pulse Ox 98.4 F 85 18 143/95 99 02/04/17 08:12 02/04/17 08:12 02/04/17 08:12 02/04/17 08:12 02/04/17 08:12 - Physical Exam General Appearance: Yes: Appropriately Dressed HEENT: positive: TMs Normal, Pharyngeal Erythema (with oval lesions ), Tonsillar Erythema (no uvular deviation), Lesions (buccal mucosa left and posterior upper pharynx ). negative: Tonsillar Exudate, Nasal Congestion, Rhinorrhea Neck: negative: Lymphadenopathy (R), Lymphadenopathy (L) Respiratory/Chest: positive: Lungs Clear, Normal Breath Sounds. negative: Chest Tender, Respiratory Distress Cardiovascular: positive: Regular Rhythm, Regular Rate, S1, S2 Integumentary: positive: Rash (oval shaped rash plantar feet, palms b/; ) Neurologic: positive: Alert, Normal Response, Responsive. negative: Respond to painful stimul Medical Decision Making - Medical Decision Making 02/04/17 09:17 Pt. is a 26 y/o female with h/o cholecysterectomy 06/21 here today after noticed a few oral les that started since later yesterday. patient reported That she was seen by her primary care provider yesterday and started on amoxicillin patient did not have strep tests but provider thought she had strep tonsillitis.Patient is also requesting STD testing had read online that rash on feet and palms could be due to syphilis. Patient denies any vaginal discharge or vaginal lesions however she does also want to test for GC and chlamydia. Patient is sexually active with the same partner however does have unprotected sex. Patient has had no recent travel.Differnential diagnosis coxsackie virus, less likely syphilis or strep tonsillitis. rash palms, plantar feet, oral lesions PLAN: throat C & S rapid NEGATIVE RPR Urine chlamydia/GC 02/04/17 09:44 *DC/Admit/Observation/Transfer Diagnosis at time of Disposition: Coxsackie virus disease - Discharge Dispostion Disposition: HOME Condition at time of disposition: Stable - Prescriptions Prescriptions: Mag Hydrox/Alh/Smc/Dpha/Lido [Magic Mouthwash *Sjr Formula*] 120 ml MM Q3H PRN # 1 mouthwash PRN Reason: Oral Pain/Mouth Sores - Referrals Referrals: Mulugeta Polo MD [Primary Care Provider] - - Patient Instructions Additional Instructions: CALL OUR LAB LINE IN 2-3 DAYS FOR RESULTS OF PENDING LABS FROM TODAY WASH YOUR HANDS FREQUENTLY you may take ibuprofen or acetaminophen as needed as directed by dyeing machine back tender YOU MAY CONTINUE TO TAKE AMOXICILLIN PREVIOUSLY PRESCRIBED OR STOP MEDICATION IT IS MORE LIKELY THAT SORE THROAT WAS DUE TO [employer] VIRUS NOT STREP THROAT FOLLOW UP WITH YOUR PRIMARY CARE PROVIDER IN THE NEXT FEW DAYS FOLLOW ITEMS ON FACT SHEET GIVEN TO YOU TODAY PATIENT VOICED UNDERSTANDING OF DISCHARGE INSTRUCTIONS AND ALL QUESTIONS WERE ANSWERED
== END 2017-02-04 10:01 | disposition home or self-care (01) ==
LOC: JERFT 07:56 → JER 07:56 → JERFT 10:01
DX: B08.4 Enteroviral vesicular stomatitis with exanthem (principal); B97.11 Coxsackievirus as the cause of diseases classified elsewhere
CPT/HCPCS: 36415; 86593; 87070; 87430; 87491; 87591; 99281-25